=== PATIENT | male | born 1990 | race African-American/Black ===

== ENCOUNTER 2017-05-05 07:04 | Emergency (ER) | payer OTHER ==
[~2017-05-05] VITALS: Ht 177.8 cm; Wt 145.2 kg
[2017-05-05] MEDS ORDERED: TOBRAMYCIN SULFA5 M1 OPHTHALMIC (08:10)
== END 2017-05-05 08:52 | disposition home or self-care (01) ==
LOC: ER 07:04
DX: S05.02XA Injury of conjunctiva and corneal abrasion without foreign body, left eye, initial encounter (principal); H20.9 Unspecified iridocyclitis; F17.210 Nicotine dependence, cigarettes, uncomplicated; Y04.8XXA Assault by other bodily force, initial encounter; Y93.89 Activity, other specified; Y92.89 Other specified places as the place of occurrence of the external cause; Y99.8 Other external cause status

== ENCOUNTER 2017-07-16 12:47 | Emergency (ER) | payer OTHER ==
[~2017-07-16] VITALS: Ht 180.3 cm; Wt 136.1 kg
[~2017-07-16 12:47] MED LIST: TOBRAMYCIN SULFA5 M1 OPHTHALMIC
[2017-07-16] MEDS ORDERED: DOXYCYCLINE 10100 MG PO (14:04)
[2017-07-16] MEDS ORDERED: IBUPROFEN 600600 M1 PO (14:04)
[2017-07-16 14:40] LABS: URINE BILIRUBIN NEGATIVE (Negative); URINE BLOOD NEGATIVE (Negative); URINE CLARITY CLEAR; URINE COLOR YELLOW; URINE GLUCOSE-RANDOM* NEGATIVE (Negative); URINE KETONES NEGATIVE (Negative); URINE LEUKOCYTES-REFLEX NEGATIVE (Negative); URINE NITRITE-REFLEX NEGATIVE (Negative); URINE PROTEIN (DIPSTICK) NEGATIVE (Negative); URINE SPECIFIC GRAVITY >= 1.030 (1.005-1.035)
[2017-07-16 15:45] VITALS: BP 123/82
== END 2017-07-16 16:04 | disposition home or self-care (01) ==
LOC: ER 12:47
PROVIDERS: Nurse Practitioner
DX: N45.1 Epididymitis (principal); F17.210 Nicotine dependence, cigarettes, uncomplicated